=== PATIENT | male | born 1990 | race Caucasian/White ===

== ENCOUNTER 2021-03-26 08:14 | Emergency (ER) | payer OTHER ==
[~2021-03-26] VITALS: Ht 165.1 cm; Wt 85.0 kg
[2021-03-26 08:29] VITALS: BP 131/85
[2021-03-26] MEDS ORDERED: CEFAZOLIN 1000MG PREMIX 50 ML IV ONE (08:45)
[2021-03-26] MEDS ORDERED: LIDOCAINE HCL/PF 1% 10 MG/ML 5ML VIAL INFIL ONE (08:45)
[2021-03-26] MEDS ORDERED: TETANUS, DIPHTHERIA, PERTUSSIS VAC/PF 0.5ML (>10YR OLD) IM ONE (08:45)
[2021-03-26] MEDS ORDERED: BACITRACIN ZINC OINT UDPKT TOP ONE (08:45)
[2021-03-26] MEDS ORDERED: LIDOCAINE HCL 1% 20ML VIAL (Pyxis) INJ INFIL ONE (09:00)
[2021-03-26] MEDS ORDERED: SODIUM CHLORIDE 0.9% 1,000 ML IV ONE (09:15)
[2021-03-26] MEDS ORDERED: ONDANSETRON HCL 4MG/2ML INJ IV STA (09:15)
[2021-03-26] MEDS ORDERED: MORPHINE SULFATE 4 MG/ML CPJ (NOT FOR IM USE) IV STA (09:15)
[2021-03-26] MEDS ORDERED: CEPH500T MT (10:34)
[2021-03-26] MEDS ORDERED: HYDR-4001 MT (10:34)
== END 2021-03-26 12:04 | disposition home or self-care (01) ==
LOC: ER 08:14
DX: S61.216A Laceration without foreign body of right little finger without damage to nail, initial encounter (principal); W18.39XA Other fall on same level, initial encounter; Y93.89 Activity, other specified; Y92.89 Other specified places as the place of occurrence of the external cause; Y99.8 Other external cause status
CPT/HCPCS: 29125; 73130; 90471; 90715; 96365; 96375; 99284; J0690; J2270; J2405; J3490; J7030

== ENCOUNTER 2021-07-12 17:58 | Emergency (ER) | payer MEDICAID, OTHER ==
[~2021-07-12] VITALS: Ht 180.3 cm; Wt 113.0 kg
[~2021-07-12 17:58] MED LIST: CEPH500T MT; HYDR-4001 MT
[2021-07-12] MEDS ORDERED: ONDANSETRON 4MG ODT PO ONE (18:45)
[2021-07-12] MEDS ORDERED: LIDOCAINE HCL/EPINEPHRINE 1%-EPI 1:100,000 20 ML VIAL INFIL ONE (18:45)
[2021-07-12] MEDS ORDERED: HYDROCODONE/ACETAMINOPHEN 10/325MG TABLET PO ONE (18:45)
[2021-07-12] MEDS ORDERED: AMOX-424 MT (19:58)
[2021-07-12] MEDS ORDERED: METR500T MT (19:58)
[2021-07-12] MEDS ORDERED: HYDR-4001 MT (19:58)
[2021-07-12] MEDS ORDERED: IBUP-2030 MT (19:58)
[2021-07-12 20:05] VITALS: BP 125/61
== END 2021-07-12 20:05 | disposition home or self-care (01) ==
LOC: ER 17:58
DX: L05.01 Pilonidal cyst with abscess (principal); R03.0 Elevated blood-pressure reading, without diagnosis of hypertension
CPT/HCPCS: 10080; 87070; 87205; 99283; J3490; Q0162

== ENCOUNTER 2021-07-14 06:28 | Emergency (ER) | payer OTHER ==
[~2021-07-14] VITALS: Ht 180.3 cm; Wt 115.8 kg
[~2021-07-14 06:28] MED LIST changes: +AMOX-424 MT; +IBUP-2030 MT; +METR500T MT
[2021-07-14 07:43] VITALS: BP 115/86
== END 2021-07-14 07:43 | disposition home or self-care (01) ==
LOC: ER 06:28
DX: L05.01 Pilonidal cyst with abscess (principal)
CPT/HCPCS: 99284